=== PATIENT | female | born 1995 | race Caucasian/White ===

== ENCOUNTER → 2017-03-15 | Outpatient (REF) | payer OTHER | LOC: M SFHCLERA 15:17 | PROVIDERS: ATTEND Physician Assistant | DX: J02.9 Acute pharyngitis, unspecified (principal) ==

== ENCOUNTER → 2017-04-08 | Outpatient (REF) | payer OTHER | LOC: M LAB REF 09:41 | PROVIDERS: ATTEND Physician Assistant | DX: R30.0 Dysuria (principal) ==

== ENCOUNTER → 2017-05-16 | Outpatient (REF) | payer OTHER | LOC: M LAB REF 21:34 | PROVIDERS: ATTEND Physician Assistant | DX: N39.0 Urinary tract infection, site not specified (principal) ==

== ENCOUNTER 2017-10-10 12:10 | Emergency (ER) | payer OTHER ==
[2017-10-10] MEDS: ACETAMINOPHEN TAB 650MG DOSE (2X325MG) PO (14:21)
[2017-10-10] MEDS: IBUPROFEN 800 MG TAB PO (14:21)
== END 2017-10-10 15:25 | disposition home or self-care (01) ==
LOC: M ED 12:10
DX: M62.830 Muscle spasm of back (principal); E03.9 Hypothyroidism, unspecified; F41.9 Anxiety disorder, unspecified; F33.9 Major depressive disorder, recurrent, unspecified; Z86.69 Personal history of other diseases of the nervous system and sense organs
CPT/HCPCS: 72052

== ENCOUNTER → 2017-12-07 | Outpatient (CLI) | payer OTHER | LOC: M WUC 08:53 | DX: M25.572 Pain in left ankle and joints of left foot (principal) ==

== ENCOUNTER → 2017-12-20 | Outpatient (REF) | payer OTHER | LOC: M LAB REF 16:26 | DX: R30.0 Dysuria (principal) ==

== ENCOUNTER 2018-01-19 22:21 | Emergency (ER) | payer OTHER ==
[2018-01-20] MEDS: METHOCARBAMOL 500 MG TAB PO (01:00)
[2018-01-20] MEDS: KETOROLAC 60 MG/2 ML VIAL (J1885) IM (01:00)
== END 2018-01-20 02:05 | disposition home or self-care (01) ==
LOC: M ED 22:21
DX: S16.1XXA Strain of muscle, fascia and tendon at neck level, initial encounter (principal); X58.XXXA Exposure to other specified factors, initial encounter; Y92.89 Other specified places as the place of occurrence of the external cause; E07.9 Disorder of thyroid, unspecified
CPT/HCPCS: J1885